=== PATIENT | male | born 1945 | race Asian ===

== ENCOUNTER 2017-08-23 10:50 | Emergency (ER) | payer OTHER ==
[~2017-08-23] VITALS: Ht 162.6 cm; Wt 54.5 kg
[2017-08-23] MEDS ORDERED: DILT60TA36 PO (11:19)
[2017-08-23 14:28] VITALS: BP 109/72
[2017-08-26] MEDS ORDERED: ADV100 IH (10:27)
[2017-08-26] MEDS ORDERED: FLUT1AER4 IH (11:01)
[2017-08-26] MEDS ORDERED: DILT180C63 PO (11:01)
== END 2017-08-23 14:31 | disposition home or self-care (01) ==
LOC: EMS 10:51
DX: M54.5 Low back pain (principal); I10 Essential (primary) hypertension; F17.210 Nicotine dependence, cigarettes, uncomplicated
CPT/HCPCS: 99283

== ENCOUNTER 2017-11-08 06:07 | Day surgery (SDC) | payer OTHER ==
[~2017-11-08] VITALS: Ht 156.2 cm; Wt 53.2 kg
[~2017-11-08 06:07] MED LIST: ALBU8HFA IH; DIGO-44 PO; DILT180C63 PO; FAMO20 PO; FLUT1AER5 PO; FURO20 PO; KDUR10 PO; MONT10TA21 PO; TIOT185 IH
[2017-11-08] MEDS ORDERED: LIDOCAINE 2% 30 ML JELLY TP ONE (06:08)
[2017-11-08] MEDS ORDERED: ALBUTEROL SULFATE 2.5 MG/0.5 ML NEB SOLUTION NEB ONE (06:08)
[2017-11-08] MEDS ORDERED: EPINEPHrine 1:1,000 [1 MG/ML] AMP IM ONE (06:08)
[2017-11-08] MEDS ORDERED: SODIUM CHLORIDE 0.9% 1,000 ML IV ONE ×2 (06:15→07:30)
[2017-11-08] MEDS ORDERED: FentaNYL CITRATE-PF 100 MCG/2 ML VIAL ONE (08:24)
[2017-11-08] MEDS ORDERED: MIDAZOLAM HCL 2 MG/2 ML VIAL ONE (08:24)
[2017-11-08] MEDS ORDERED: MethylPREDNISolone SOD SUCC 125 MG/2 ML VIAL IVP ONE (09:15)
[2017-11-08] MEDS ORDERED: MethylPREDNISolone SOD SUCC 125 MG/2 ML VIAL ONE (09:21)
[2017-11-08] MEDS ORDERED: OXYGEN THERAPY IH SCH (20:00)
== END 2017-11-08 11:05 | disposition home or self-care (01) ==
LOC: SURGERY 06:07
PROVIDERS: ATTEND Internal Medicine Critical Care Medicine
DX: J38.4 Edema of larynx (principal); B37.0 Candidal stomatitis; J39.8 Other specified diseases of upper respiratory tract; J98.09 Other diseases of bronchus, not elsewhere classified; F10.21 Alcohol dependence, in remission; J43.9 Emphysema, unspecified; I49.8 Other specified cardiac arrhythmias; I27.20 Pulmonary hypertension, unspecified; I11.0 Hypertensive heart disease with heart failure; I50.9 Heart failure, unspecified; Z87.891 Personal history of nicotine dependence; Z90.49 Acquired absence of other specified parts of digestive tract; Z86.11 Personal history of tuberculosis; Z79.899 Other long term (current) drug therapy; Z82.3 Family history of stroke
CPT/HCPCS: 31623; 31624; 71045; 87015; 87070; 87077; 87186; 87205; 87206; 87220; 88108; 88312; J0171; J2250; J2930; J3010; J7030